=== PATIENT | male | born 1985 | race Caucasian/White ===

== ENCOUNTER 2019-10-10 12:39 | Emergency (ER) | payer MEDICAID ==
[~2019-10-10] VITALS: Ht 167.6 cm; Wt 79.0 kg
[2019-10-10 16:31] VITALS: BP 135/95
== END 2019-10-11 00:58 | disposition left against medical advice (07) ==
LOC: ER 12:39
DX: Z53.21 Procedure and treatment not carried out due to patient leaving prior to being seen by health care provider (principal)

== ENCOUNTER 2020-01-01 04:59 | Emergency (ER) | payer MEDICAID, OTHER ==
[~2020-01-01] VITALS: Ht 167.6 cm; Wt 78.0 kg
[2020-01-01] MEDS ORDERED: IBUPROFEN 600MG TABLET PO STA (06:27)
[2020-01-01 08:48] VITALS: BP 131/95
== END 2020-01-01 08:51 | disposition home or self-care (01) ==
LOC: ER 04:59
DX: S43.401A Unspecified sprain of right shoulder joint, initial encounter (principal); F12.10 Cannabis abuse, uncomplicated; X58.XXXA Exposure to other specified factors, initial encounter; Y93.89 Activity, other specified; Y92.89 Other specified places as the place of occurrence of the external cause; Y99.8 Other external cause status
CPT/HCPCS: 73030; 99283

== ENCOUNTER 2025-04-21 00:45 | Emergency (ER) | payer MEDICAID ==
[~2025-04-21] VITALS: Ht 170.2 cm; Wt 84.0 kg
[2025-04-21 00:52] VITALS: BP 128/83; PULSE 126; RESP 16; TEMP 36.8; O2SAT 98
[2025-04-21] MEDS ORDERED: SODIUM CHLORIDE 0.9% 1,000 ML IV ONE (01:00)
== END 2025-04-21 01:38 | disposition left against medical advice (07) ==
LOC: ER 00:45
DX: Z00.8 Encounter for other general examination (principal); H54.61 Unqualified visual loss, right eye, normal vision left eye; F12.90 Cannabis use, unspecified, uncomplicated
CPT/HCPCS: 99283; J7030

== ENCOUNTER 2025-06-22 18:03 | Emergency (ER) | payer OTHER ==
[2025-06-22 18:06] VITALS: PULSE 103; RESP 18; O2SAT 96
== END 2025-06-22 20:26 | disposition left against medical advice (07) ==
LOC: ER 18:03
DX: M79.642 Pain in left hand (principal)
CPT/HCPCS: 99281